=== PATIENT | male | born 1995 | race Asian ===

== ENCOUNTER → 2019-05-02 | Day surgery (SDC) | payer BC ==
[~2019-05-02] MED LIST: Bupivacaine/Epinephrine 0.25% 30 ML VIAL ONE; Dexamethasone 20 MG/5 ML VIAL ONE; Fentanyl 100 MCG/2 ML VIAL ONE; Glycopyrrolate 0.2 MG/ML 5 ML SYRINGE ONE; Lidocaine 1% PF 5 ML VIAL ONE; Meperidine HCl/PF 25 MG/ML VIAL ONE; Midazolam HCl 2 mg/2 ml Vial ONE; Ondansetron PF 4 MG/2 ML Vial ONE; PROPOFOL 200 MG/20 ML VIAL ONE; Piperacillin/Tazobactam 3.375 GM VIAL ONE; Rocuronium Bromide 10 MG/ML (10ML VIAL) ONE; SUGAMMADEX SODIUM 200 MG/2 ML VIAL ONE; Sodium Chloride 0.9% 100 ML ONE; Succinylcholine Chloride 20 MG/ML 10 ml SYRINGE FS ONE
--- NOTE | 2019-05-02 10:22 | HP ---
CHIEF COMPLAINT: Abdominal pain. HISTORY OF PRESENT ILLNESS: Mr. Harper is a 23-year-old man with sudden onset of lower abdominal pain yesterday afternoon shortly after eating. He had nausea and vomiting, but no fevers or chills. The pain was not getting any better. It was aggravated by movement. He came to a local ER, where he was diagnosed with appendicitis by CT scan. He was started on antibiotics and is feeling better this morning. He describes the pain as sharp and constant since its onset. No other similar symptoms in the past. No hematemesis. No diarrhea or constipation. PAST MEDICAL HISTORY: None. PAST SURGICAL HISTORY: None except circumcision. FAMILY HISTORY: None. SOCIAL HISTORY: No history of alcohol or drug use. Occasional tobacco. MEDICATIONS: No medications. ALLERGIES: NO ALLERGIES. HE DID RECEIVE ZOSYN IN THE EMERGENCY ROOM. REVIEW OF SYSTEMS: Ten-system review of systems is negative except for HPI. PHYSICAL EXAMINATION: VITAL SIGNS: The patient is currently afebrile with normal vital signs. GENERAL: Reveals a healthy-appearing young man, in no acute distress. He is not flushed or toxic, jaundiced or icteric. HEENT: Unremarkable. NECK: Supple without lymphadenopathy or thyroid nodules. HEART: Regular in its rate and rhythm without murmurs, rubs, or gallops. LUNGS: Clear to auscultation bilaterally. ABDOMEN: Soft and nondistended. He indicates the point of greatest pain in the left lower quadrant, but his point of greatest tenderness is in the right lower quadrant at McBurney's point. He does not exhibit any rigidity or rebound, and does have focal tenderness in this area. No palpable masses or hernias. EXTREMITIES: Warm and well perfused without edema. NEUROLOGIC: No focal deficits. PSYCHIATRIC: Alert, oriented, and appropriate. LABORATORY DATA: White count is elevated. Other labs are fairly unremarkable. IMAGING: CT showed an appendicolith with a dilated appendix consistent with acute appendicitis. No other significant abnormalities were seen. ASSESSMENT: Acute appendicitis. PLAN: Laparoscopic appendectomy. The patient's diagnosis and recommended treatment were discussed with him and his girlfriend. The inherent risks of laparoscopic appendectomy were also discussed. These include, but are not limited to, bleeding, infection, risks of anesthesia, damage to nearby structures including bowel, blood vessels, and bladder, need for open surgery, need for other procedures. They understand, accept these risks, and wished to proceed. He is awaiting OR. Job ID: [id number]
--- NOTE | 2019-05-07 18:09 | PDOC.OP ---
Operative Note - Operative Note Operative Note: PROCEDURE: Laparoscopic appendectomy. SURGEON: Bhavana Dillon M.D. DATE OF PROCEDURE: 05/02/2019 PREOPERATIVE DIAGNOSIS: Appendicitis. POSTOPERATIVE DIAGNOSIS: Appendicitis. HISTORY: 23-year-old man who presented with signs and symptoms concerning for appendicitis. CT scan showed evidence of acute appendicitis and recommendation was made to proceed with laparoscopic appendectomy. DESCRIPTION OF PROCEDURE: After informed consent was obtained and appropriate antibiotics continued, the patient was taken to the operating room and placed in the supine position and general endotracheal anesthesia was administered. The bladder was decompressed with a Muñoz catheter and the abdomen was prepped and draped in the standard sterile fashion. Local anesthesia was infused to the skin and subcutaneous tissues superior to the umbilicus. A transverse skin incision was made and a Veress needle placed into the abdominal cavity and carbon dioxide gas insufflated without difficulty. Opening pressure was less than 5. Carbon dioxide gas was insufflated to an intra-abdominal pressure 15 and the patient tolerated this well. The Veress needle was withdrawn and a [place] port advanced under direct laparoscopic vision into the abdominal cavity. Two additional ports were placed in the suprapubic and left lateral abdomen under direct laparoscopic vision after local anesthesia was infused at these sites. There were no significant adhesions. The appendix was identified and appeared inflamed but not perforated. The appendix was grasped by the mesoappendix and elevated. The mesoappendix was then sequentially ligated and divided down to the base of the appendix, which was normal in appearance and was clearly seen to be at the confluence of the tenia. Two Endoloops were placed around the base of the appendix and the appendix was divided between these Endoloops, placed into an EndoCatch bag and drawn out through the suprapubic incision. The suprapubic trocar was then replaced and the operative site was easily irrigated to clear). The suprapubic trocar was removed and the fascia closed under direct laparoscopic vision with a 0 Vicryl suture on a GraNee needle with excellent technical result. The left lateral trocar was then removed and hemostasis verified. Carbon dioxide gas was desufflated through the umbilical trocar which was then removed. The skin incisions were irrigated and additional local anesthesia infused at each site. The skin was closed with 4-0 subcuticular Monocryl sutures and Dermabond dressings were placed. The patient was extubated and taken to the recovery room in good condition. Estimated blood loss was minimal. There were no complications. SPECIMEN: Appendix.
== END ==
LOC: SDC 08:28
PROVIDERS: ATTEND Surgery
PROC: 0DTJ4ZZ Resection of Appendix, Percutaneous Endoscopic Approach (ICD-10-PCS; principal; 2019-05-02)
DX: K35.80 Unspecified acute appendicitis (principal); F17.290 Nicotine dependence, other tobacco product, uncomplicated
CPT/HCPCS: 88304; J1100; J2001; J2175; J2250; J2405; J2543; J2704; J3010; J3490